=== PATIENT | female | born 1985 | race African-American/Black ===

== ENCOUNTER 2023-07-08 18:01 | Emergency (ER) | payer MEDICAID | END 2023-07-08 18:57 | disposition left against medical advice (07) | LOC: ER 18:01 | DX: T78.40XA Allergy, unspecified, initial encounter (principal); Z53.21 Procedure and treatment not carried out due to patient leaving prior to being seen by health care provider; X58.XXXA Exposure to other specified factors, initial encounter | CPT/HCPCS: 99281 ==